=== PATIENT | female | born 1970 | race African-American/Black ===

== ENCOUNTER 2018-05-23 06:43 | Day surgery (SDC) | payer OTHER ==
[2018-05-22 15:04] VITALS: BMI 28.4
[~2018-05-23] VITALS: Ht 175.3 cm; Wt 94.3 kg
[2018-05-23] VITALS (13 sets, daily range): BP systolic 130–148; BP diastolic 66–130; PULSE 70–88; RESP 14–25; Ht 175.3 cm; Wt 94.3 kg
[~2018-05-23 06:43] MED LIST: CEFAZOLIN 1 GM/50 ML (PMX) 50 ML IVPB SCH; SOD CHLORIDE 0.9% 1,000 ML IV SCH
[2018-05-23] MEDS ORDERED: ACET1TAB44 PO (10:05)
[2018-05-23] MEDS ORDERED: ALPR0.5T PO (10:05)
[2018-05-23] MEDS ORDERED: CHOL100062 PO (10:05)
[2018-05-23] MEDS ORDERED: LISI10TA2 PO (10:05)
[2018-05-23] MEDS ORDERED: FER325 PO (10:05)
--- NOTE | 2018-05-23 12:52 | PREAC ---
Date/Time of Note Date/Time of Note DATE: 05/23/18 TIME: 12:49 Anesthesia Eval and Record Evaluation Time Pre-Procedure Interview DATE: 05/23/18 TIME: 12:48 Age 47 Sex female NPO: 8 hrs Preoperative diagnosis complex cystic mass left breast Planned procedure left breast needle localization partial mastectomy Past Medical History Past Medical History: Includes (quit 4 months ago) Cardio: HTN Pulm: Smoking Hx, Other Heme: Anemia Psych: Anxiety Surgery & Anesthesia Issues No known issue Meds Anticoagulation: No Beta Stephan within 24 hr: No Reason Beta Stephan not given: Pt. not on B-Stephan Reported Medications Acetaminophen with Codeine (Acetaminophen-Cod #4 Tablet) 1 Each Tablet, 1 TAB PO Q4H PRN PRN for PAIN LEVEL 6-10, TAB 05/23/18 Ferrous Sulfate* (Ferrous Sulfate*) 325 Mg Tabec, 325 MG PO DAILY, TAB 05/23/18 Lisinopril* (Lisinopril*) 10 Mg Tablet, 10 MG PO DAILY, #30 TAB 05/23/18 Cholecalciferol* (Vitamin D3*) 1,000 Unit Tablet, 1000 UNIT PO DAILY, TAB 05/23/18 Alprazolam* (Xanax*) 0.5 Mg Tab, 0.5 MG PO BID PRN for ANXIETY, TAB 05/23/18 Current Medications Cefazolin Sodium 50 ml @ 100 mls/hr PRE-OP IVPB ; Start 05/23/18 at 06:00 Sodium Chloride 1,000 ml @ 75 mls/hr [id number] IV ; Start 05/23/18 at 06:00; Stop 05/23/18 at 18:00 Meds reviewed: Yes Allergies Coded Allergies: ciprofloxacin (Verified Allergy, Unknown, 05/23/18) Allergies Reviewed: Yes Labs/Studies Labs Reviewed: Reviewed by anesthesiologist Result Diagram: 05/23/18 0737 05/23/18 0737 Laboratory Tests 05/23/18 07:37 test: Negative Pre-procedure Exam Last vitals Vital Signs Date Temp Pulse Resp B/P (MAP) Pulse Ox O2 O2 Flow FiO2 Time Delivery Rate 05/23/18 97.7 82 18 130/130 100 Room Air 11:08 (130) Airway: Adequate mouth opening, Adequate thyromental dist Mallampati: Mallampati II Teeth: Normal Lung: Normal Heart: Normal ASA Physical Status ASA physical status: 2 Emergency: None Planned Anesthetic General/MAC: LMA Planned Pain Management Parenteral pain med Pre-operative Attestations Prior to commencing anesthesia and surgery, the patient was re-evaluated, there was verification of: *The patient's identity *The results of appropriate recent lab work and preoperative vital signs *The above evaluation not changing prior to induction *Anesthetic plan, risk benefits, alternative and complications discussed with patient/family; questions answered; patient/family understands, accepts and wishes to proceed. GEORGINA BACA INFORMATION TECHNOLOGY ANALYST May 23, 2018 12:52
[2018-05-23] MEDS ORDERED: PROPOFOL 20 ML ONE ×5 (13:10→13:47)
[2018-05-23] MEDS ORDERED: LIDOCAINE 2% (SDV) 5 ML INJ ONE (13:10)
[2018-05-23] MEDS ORDERED: FENTAnyl 50 MCG/ML VIAL ONE ×2 (13:11→14:12)
[2018-05-23] MEDS ORDERED: CEFAZOLIN 1 GM INJ ONE (13:21)
[2018-05-23] MEDS ORDERED: ONDANSETRON 4 MG INJ ONE (13:32)
[2018-05-23] MEDS ORDERED: DEXAMETHASONE 4 MG/ML 5 ML INJ ONE (13:32)
[2018-05-23] MEDS ORDERED: FAMOTIDINE 20 MG INJ ONE (13:32)
[2018-05-23] MEDS ORDERED: GLYCOPYRROLATE 0.4 MG INJ ONE (13:46)
--- NOTE | 2018-05-23 13:46 | SIPON ---
Date/Time of Note Date/Time of Note DATE: 05/23/18 TIME: 13:45 Operative Report Preoperative Diagnosis Left breast mass Postoperative Diagnosis Same Operation/Procedure Performed Left needle directed excisional breast biopsy Surgeon see signature line assistant director of admissions Angélica Marmolejo Anesthesia: general Estimated blood loss: 10 - 50 ml's Transfusion Required none Specimen Left breast mass Grafts/Implants none Complications none ALEX MCKEON MD May 23, 2018 13:46
--- NOTE | 2018-05-23 13:54 | OPR ---
DATE OF OPERATION: 05/23/2018 PREOPERATIVE DIAGNOSIS: Symptomatic complex cystic mass, left breast. POSTOPERATIVE DIAGNOSIS: Symptomatic complex cystic mass, left breast. x PROCEDURE: Left needle-directed excisional biopsy. ANESTHESIA: General. ANESTHESIOLOGIST: Nurse self propelled dredge operatorDonya . SURGEON: Franky Madsen MD INTENSIVE CARE MEDICINE SPECIALIST: Angélica Marmolejo. INDICATIONS FOR PROCEDURE: The patient is a 47-year-old female who underwent mammographic screening, was found to have a cystic mass in her left breast; appeared to be benign; however, the patient was complaining it becomes quite symptomatic certain times during the month. She requested excision. S he consented and was scheduled for surgery. DESCRIPTION OF PROCEDURE: On the morning of surgery, the patient presented to [facility] where she underwent localization of the lesion performed by attending radiologist, Dr. Augustus Gresham. Subsequently, she was brought to the operating theater, placed under general a nesthesia. The left breast was prepped and draped in usual sterile fashion. The localization wire w as at approximately the 5 o'clock location proceeding in a medial direction. A curvilinear incision was made in this area. Subcutaneous tissue was dissected with cautery. Skin edges were then elevate d with skin hooks and wide circumferential dissection of this cystic mass took place, taking care to remove the mass in its entirety. Specimen was removed and sent for radiographic confirmation of capt ure. Capture was confirmed. Specimen was then sent for permanent pathologic analysis. The wound wa s irrigated. Minimal bleeding was controlled with cautery, and the skin was then reapproximated with a deep dermal layer of 4-0 Vicryl sutures in interrupted fashion, followed by final skin approximati on with 5-0 PDS sutures in subcuticular fashion. Benzoin and Steri-Strips were then applied. The pa tient tolerated the procedure well. Estimated blood loss was 20 mL. There were no complications. T he patient was transported in stable condition to recovery room where circumferential compression ruth ssing was applied. Dictated By: FRANKY MADSEN MD TL/NTS Conf#: [id number] DID#: [id number] CC: ANGÉLICA MARMOLEJO LIVESTOCK BREEDER;*EndCC*
[2018-05-23] MEDS ORDERED: HYDROCODONE/APAP (7.5/325) TAB PO PRN (14:00)
[2018-05-23] MEDS ORDERED: HYDROmorphONE 2 MG/ML SYG ONE (14:01)
[2018-05-23] MEDS: FENTAnyl 50 MCG/ML VIAL IV PRN ×2 (14:21→14:29)
--- NOTE | 2018-05-23 14:21 | PAC ---
Date/Time of Note Date/Time of Note DATE: 05/23/18 TIME: 14:12 Post-Anesthesia Notes Post-Anesthesia Note Last documented vital signs Vital Signs Date Temp Pulse Resp B/P (MAP) Pulse Ox O2 O2 Flow FiO2 Time Delivery Rate 05/23/18 97.7 82 18 130/130 100 Room Air 11:08 (130) Activity: WNL Respiratory function: WNL Cardiovascular function: WNL Mental status: Baseline Pain reasonably controlled: Yes Hydration appropriate: Yes Nausea/Vomiting absent: Yes Comments BP 135/78; spo2 100%; HR 88 RR; 14 Temp 97.8F GEORGINA BACA CRNA May 23, 2018 14:21
[2018-05-23] MEDS ORDERED: HYDROmorphONE 1 MG/5 ML IV SYRINGE IV PRN ×2 (14:30)
[2018-05-23] MEDS ORDERED: FENTAnyl 50 MCG/ML VIAL IV PRN (14:30)
[2018-05-23] MEDS ORDERED: LABETALOL HCL 20MG INJ IV PRN (14:30)
[2018-05-23] MEDS ORDERED: hydrALAzine 20 MG INJ IV PRN (14:30)
[2018-05-23] MEDS ORDERED: KETOROLAC 30 MG INJ IV PRN (14:30)
[2018-05-23] MEDS ORDERED: ONDANSETRON 4 MG INJ IV PRN (14:30)
[2018-05-23] MEDS ORDERED: MIDAZOLAM 1 MG/ML 2 ML INJ IV PRN (14:30)
[2018-05-23] MEDS ORDERED: OXYCODONE/ACETAMINOPHEN (5/325) TAB PO PRN (14:30)
[2018-05-23] MEDS ORDERED: MEPERIDINE 25 MG INJ IV PRN (14:30)
== END 2018-05-23 16:05 | disposition home or self-care (01) ==
LOC: SDS 06:43
PROVIDERS: ATTEND Surgery Surgical Oncology
DX: N60.22 Fibroadenosis of left breast (principal); N60.12 Diffuse cystic mastopathy of left breast; I10 Essential (primary) hypertension
CPT/HCPCS: 19120; 80053; 84703; 85025; 85610; 85730; 88307; J0690; J1100; J1170; J1885; J2175; J2405; J3010; Z7512; Z7610